=== PATIENT | male | born 1995 | race Asian ===

== ENCOUNTER → 2018-11-03 | Outpatient (CLI) | payer MEDICAID ==
[2018-11-03 13:01] LABS: CHOLESTEROL 121.16 mg/dL (0-200); TRIGLYCERIDES 76 mg/dL (<150)
[2018-11-03 13:13] LABS: DIRECT LDL 62 mg/dL (<100)
== END ==
LOC: OD 11:27
PROVIDERS: ATTEND Psychiatry & Neurology Psychiatry
DX: F84.0 Autistic disorder (principal)
CPT/HCPCS: 36415; 80061; 83036

== ENCOUNTER → 2019-02-03 | Outpatient (CLI) | payer MEDICAID ==
[2019-02-03 13:41] LABS: CHOLESTEROL 127.79 mg/dL (0-200); TRIGLYCERIDES 61 mg/dL (<150)
[2019-02-03 13:52] LABS: DIRECT LDL 68 mg/dL (<100)
== END ==
LOC: OD 12:25
PROVIDERS: ATTEND Psychiatry & Neurology Psychiatry
DX: F63.81 Intermittent explosive disorder (principal)
CPT/HCPCS: 36415; 80061; 83036